=== PATIENT | female | born 1990 | race African-American/Black ===

== ENCOUNTER 2016-04-20 08:42 | Emergency (ER) | payer OTHER ==
--- NOTE | 2016-04-20 09:15 | EDDOCDS ---
Physician Documentation [facility] Name: Jael Kessler Age: 25 yrs Sex: Female : 1990 Arrival Date: 04/20/2016 Time: 08:42 Bed I5 / M5 Private MD: Anshu Morton Disposition: 04/20/16 09:04 Discharged to Home/Self Care. Impression: Acute nasopharyngitis [common cold]. - Condition is Stable. - Discharge Instructions: Cool Mist Vaporizers, Upper Respiratory Infection, Adult, Gpzt-fc-[id number], Viral Infections, Tgxu-Ql-Argk. - Medication Reconciliation, Local Pharmacy Hours form. - Follow up: Mariusz Kenny [facility]; When: Today; Reason: Further diagnostic work-up, Recheck today's complaints, Continuance of care. - Problem is new. - Symptoms are unchanged. Historical: - Allergies: no known allergies; - Home Meds: 1. gabapentin 300 mg oral cap 3 times per day 2. Lexapro 20 mg Oral tab 1 tab once daily 3. losartan 25 mg oral tab 1 tab once daily 4. melatonin 3 mg Oral tab 1 mg daily 5. trazodone 50 mg oral tab 2 times per day - PMHx: Hypertension; - PSHx: none; - Social history: Smoking status: Patient states was never smoker of tobacco. No barriers to communication noted, The patient speaks fluent Botswanan. - Family history: Not pertinent. - : The pt / caregiver states he / she is not on anticoagulants. Home medication list is obtained from the patient. - Exposure Risk Screening:: None identified. 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 8 in. (172.72 cm); Pain 3/10; 08:46 Body Mass Index 30.41 (90.72 kg, 172.72 cm) [facility] MDM: 09:07 Financial registration complete. lg Signatures: Xavier Leon RN RN jmk Peters, Mary, RN RN mcp Ganter, LoriLee, Vin Licona lg, PA PA btw MTDD
--- NOTE | 2016-04-20 09:15 | EDDOCDS ---
Nurse's Notes [facility] Name: Jael Kessler Age: 25 yrs Sex: Female : 1990 Arrival Date: 04/20/2016 Time: 08:42 Bed I5 / M5 Private MD: Anshu Morton Diagnosis: Acute nasopharyngitis [common cold] Presentation: 04/20 08:48 Presenting complaint: Patient states: Sick for last 1 1/2 weeks--cough, chest mcp congestion, fatigue, nausea. Adult Sepsis Screening: The patient does not have new or worsening altered mentation. Patient's respiratory rate is less than 22. Systolic blood pressure is greater than 100. Patient has a qSOFA score of 0- Negative Sepsis Screen. Suicide/Homicide risk assessment- the patient denies having any suicidal and/or homicidal ideations and does not present with any other emotional, behavioral or mental health complaints. 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 Transition of care: patient was not received from another setting of care. 08:48 Acuity: SEJAL Level [address] [facility] 08:48 Method Of Arrival: Walkin/Carried/Asstd [facility] Triage Assessment: 08:50 General: Appears in no apparent distress, Behavior is cooperative. Pain: Location: [facility] chest with cough Pain currently is 3 out of 10 on a pain scale. HIV screening NA for this visit Offered previously. Neurological: No deficits noted. Respiratory: Airway is patent Respiratory effort is even, unlabored, Reports cough that is persistent. Derm: Skin is normal. 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 Historical: - Allergies: no known allergies; - Home Meds: 1. gabapentin 300 mg oral cap 3 times per day 2. Lexapro 20 mg Oral tab 1 tab once daily 3. losartan 25 mg oral tab 1 tab once daily 4. melatonin 3 mg Oral tab 1 mg daily 5. trazodone 50 mg oral tab 2 times per day - PMHx: Hypertension; - PSHx: none; - Social history: Smoking status: Patient states was never smoker of tobacco. No barriers to communication noted, The patient speaks fluent Tunisian. - Family history: Not pertinent. - : The pt / caregiver states he / she is not on anticoagulants. Home medication list is obtained from the patient. - Exposure Risk Screening:: None identified. Screenin:12 Screening information is obtained from the patient. Fall risk: No risks identified. jmk Assistance ADL's: requires no assistance with activities of daily living. Abuse/DV Screen: The patient / caregiver reports he/she is: not in a situation that causes fear, pain or injury. Nutritional screening: No deficits noted. Advance Directives: Currently, there is no health care proxy. There is no active DNR order. There is no living will. There is no Power of Endless Bed Drum Sander. home support is adequate. Assessment: 09:12 General: Appears in no apparent distress, without resp distress. very tolerant of jmk activity. No work of breathing noted. Occasional hacking dry cough noted. moist pink oral mucosa.. Vital Signs: 08:46 BP 148 / 89; Pulse 96; Resp 20; Temp 98.2(O); Pulse Ox 98% on R/A; Weight 90.72 kg; [facility] Height 5 ft. 8 in. (172.72 cm); Pain 3/10; 08:46 Body Mass Index 30.41 (90.72 kg, 172.72 cm) [facility] Vitals: 08:46 Log In Time: April 20, 2016 at 08:41. [facility] ED Course: 08:44 Patient visited by Jessenia Reina. mm15 08:44 Anshu Morton is Private Physician. mm15 08:44 Patient moved to Waiting mm15 08:[address] [facility] 08:51 Patient visited by Moraima Jarvis RN. [facility] 08:51 Patient moved to I5 / M5 [facility] 08:58 [facility] btw 08:58 Jeaneth Fang MD is Attending Physician. btw 08:59 Patient visited by Vin Rankin PA. btw 09:04 Mariusz Kenny [facility] is Referral Physician. btw 09:12 The patient / caregiver is instructed regarding the plan of care and ED course. jmk 09:12 No IV's were initiated during this patient's visit. No procedures done that require jmk assistance. Order Results: There are currently no results for this order. Outcome: 09:04 Discharge ordered by Provider. btw 09:12 Discharge Assessment: Patient awake, alert and oriented x 3. No cognitive and/or jmk functional deficits noted. Patient verbalized understanding of disposition instructions. patient administered narcotics - no. The following High Risk Discharge criteria are identified: None. Discharged to home ambulatory. Condition: good. Discharge instructions given to patient, Instructed on discharge instructions, follow up and referral plans. medication usage, Demonstrated understanding of instructions, medications, Pt was receptive of discharge instructions/ teaching. No special radiology studies were completed. Property :Personal belongings accompany Pt. 09:14 Patient left the ED. 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 moe rosa PENNY
--- NOTE | 2016-04-22 10:16 | EDDOCDS ---
Physician Documentation [facility] Name: Jael Kessler Age: 25 yrs Sex: Female : 1990 Arrival Date: 04/20/2016 Time: 08:42 Bed I5 / M5 Private MD: Anshu Morton Disposition: 04/20/16 09:04 Discharged to Home/Self Care. Impression: Acute nasopharyngitis [common cold]. - Condition is Stable. - Discharge Instructions: Cool Mist Vaporizers, Upper Respiratory Infection, Adult, Twxj-ah-Vzvr, Viral Infections, Jpzo-Fd-Qvit. - Medication Reconciliation, Local Pharmacy Hours form. - Follow up: Mariusz Kenny [facility]; When: Today; Reason: Further diagnostic work-up, Recheck today's complaints, Continuance of care. - Problem is new. - Symptoms are unchanged. Historical: - Allergies: no known allergies; - Home Meds: 1. gabapentin 300 mg oral cap 3 times per day 2. Lexapro 20 mg Oral tab 1 tab once daily 3. losartan 25 mg oral tab 1 tab once daily 4. melatonin 3 mg Oral tab 1 mg daily 5. trazodone 50 mg oral tab 2 times per day - PMHx: Hypertension; - PSHx: none; - Social history: Smoking status: Patient states was never smoker of tobacco. No barriers to communication noted, The patient speaks fluent Slovak. - Family history: Not pertinent. - : The pt / caregiver states he / she is not on anticoagulants. Home medication list is obtained from the patient. - Exposure Risk Screening:: None identified. 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 8 in. (172.72 cm); Pain 3/10; 08:46 Body Mass Index 30.41 (90.72 kg, 172.72 cm) [facility] MDM: 09:07 Financial registration complete. lg 09:23 [facility] Payment Agreement was scanned into [employer] and attached to record. lg 14:06 T-Sheet-- Draft Copy was scanned into [employer] and attached to record. gb Signatures: Xavier Leon,RN Moraima Braxton RN RN mcp Barnhardt, Gloria, Reg Reg gb Andrea Subramanian, Reg Reg lg Vin Rankin PA PA btw The chart was reviewed and I authenticate all verbal orders and agree with the evaluation and treatment provided.Attachments: 09: [facility] Payment Agreement lg 14:06 T-Sheet-- Draft Copy gb Chart Complete MTDD
--- NOTE | 2016-04-22 10:16 | EDDOCDS ---
Physician Documentation [facility] Name: Jael Kessler Age: 25 yrs Sex: Female : 1990 Arrival Date: 04/20/2016 Time: 08:42 Bed I5 / M5 Private MD: Anshu Morton Disposition: 04/20/16 09:04 Discharged to Home/Self Care. Impression: Acute nasopharyngitis [common cold]. - Condition is Stable. - Discharge Instructions: Cool Mist Vaporizers, Upper Respiratory Infection, Adult, Rnwz-wd-Wwmt, Viral Infections, Nbob-Hf-Axom. - Medication Reconciliation, Local Pharmacy Hours form. - Follow up: Mariusz Kenny [facility]; When: Today; Reason: Further diagnostic work-up, Recheck today's complaints, Continuance of care. - Problem is new. - Symptoms are unchanged. Historical: - Allergies: no known allergies; - Home Meds: 1. gabapentin 300 mg oral cap 3 times per day 2. Lexapro 20 mg Oral tab 1 tab once daily 3. losartan 25 mg oral tab 1 tab once daily 4. melatonin 3 mg Oral tab 1 mg daily 5. trazodone 50 mg oral tab 2 times per day - PMHx: Hypertension; - PSHx: none; - Social history: Smoking status: Patient states was never smoker of tobacco. No barriers to communication noted, The patient speaks fluent Yakut. - Family history: Not pertinent. - : The pt / caregiver states he / she is not on anticoagulants. Home medication list is obtained from the patient. - Exposure Risk Screening:: None identified. 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 8 in. (172.72 cm); Pain 3/10; 08:46 Body Mass Index 30.41 (90.72 kg, 172.72 cm) [facility] MDM: 09:07 Financial registration complete. lg 09:23 [facility] Payment Agreement was scanned into [employer] and attached to record. lg 14:06 T-Sheet-- Draft Copy was scanned into [employer] and attached to record. gb Signatures: Xavier Leon,RN Moraima Braxton RN RN mcp Barnhardt, Gloria, Reg Reg gb Andrea Subramanian, Reg Reg lg Vin Rankin PA PA btw The chart was reviewed and I authenticate all verbal orders and agree with the evaluation and treatment provided.Attachments: 09: [facility] Payment Agreement lg 14:06 T-Sheet-- Draft Copy gb Chart Complete MTDD
--- NOTE | 2016-04-22 10:16 | EDDOCDS ---
Nurse's Notes [facility] Name: Jael Kessler Age: 25 yrs Sex: Female : 1990 Arrival Date: 04/20/2016 Time: 08:42 Bed I5 / M5 Private MD: Anshu Morton Diagnosis: Acute nasopharyngitis [common cold] Presentation: 04/20 08:48 Presenting complaint: Patient states: Sick for last 1 1/2 weeks--cough, chest mcp congestion, fatigue, nausea. Adult Sepsis Screening: The patient does not have new or worsening altered mentation. Patient's respiratory rate is less than 22. Systolic blood pressure is greater than 100. Patient has a qSOFA score of 0- Negative Sepsis Screen. Suicide/Homicide risk assessment- the patient denies having any suicidal and/or homicidal ideations and does not present with any other emotional, behavioral or mental health complaints. 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 Transition of care: patient was not received from another setting of care. 08:48 Acuity: SEJAL Level 4 [facility] 08:48 Method Of Arrival: Walkin/Carried/Asstd [facility] Triage Assessment: 08:50 General: Appears in no apparent distress, Behavior is cooperative. Pain: Location: [facility] chest with cough Pain currently is 3 out of 10 on a pain scale. HIV screening NA for this visit Offered previously. Neurological: No deficits noted. Respiratory: Airway is patent Respiratory effort is even, unlabored, Reports cough that is persistent. Derm: Skin is normal. 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 gabapentin 300 mg oral cap 3 times per day 2. Lexapro 20 mg Oral tab 1 tab once daily 3. losartan 25 mg oral tab 1 tab once daily 4. melatonin 3 mg Oral tab 1 mg daily 5. trazodone 50 mg oral tab 2 times per day - PMHx: Hypertension; - PSHx: none; - Social history: Smoking status: Patient states was never smoker of tobacco. No barriers to communication noted, The patient speaks fluent Italian. - Family history: Not pertinent. - : The pt / caregiver states he / she is not on anticoagulants. Home medication list is obtained from the patient. - Exposure Risk Screening:: None identified. Screenin:12 Screening information is obtained from the patient. Fall risk: No risks identified. jmk Assistance ADL's: requires no assistance with activities of daily living. Abuse/DV Screen: The patient / caregiver reports he/she is: not in a situation that causes fear, pain or injury. Nutritional screening: No deficits noted. Advance Directives: Currently, there is no health care proxy. There is no active DNR order. There is no living will. There is no Power of Barrel Lathe Operator. home support is adequate. Assessment: 09:12 General: Appears in no apparent distress, without resp distress. very tolerant of jmk activity. No work of breathing noted. Occasional hacking dry cough noted. moist pink oral mucosa.. Vital Signs: 08:46 BP 148 / 89; Pulse 96; Resp 20; Temp 98.2(O); Pulse Ox 98% on R/A; Weight 90.72 kg; [facility] Height 5 ft. 8 in. (172.72 cm); Pain 3/10; 08:46 Body Mass Index 30.41 (90.72 kg, 172.72 cm) [facility] Vitals: 08:46 Log In Time: April 20, 2016 at 08:41. [facility] ED Course: 08:44 Patient visited by Jessenia Reina. mm15 08:44 Anshu Morton is Private Physician. mm15 08:44 Patient moved to Waiting mm15 08:49 Triage Initiated [facility] 08:51 Patient visited by Moraima Jarvis RN. [facility] 08:51 Patient moved to I5 / M5 [facility] 08:58 Vin [facility]. btw 08:58 Jeaneth Fang MD is Attending Physician. btw 08:59 Patient visited by Vin Rankin PA. btw 09:04 Mariusz Kenny [facility] is Referral Physician. btw 09:12 The patient / caregiver is instructed regarding the plan of care and ED course. jmk 09:12 No IV's were initiated during this patient's visit. No procedures done that require jmk assistance. 09:23 [facility] Payment Agreement was scanned into [employer] and attached to record. lg 14:06 T-Sheet-- Draft Copy was scanned into [employer] and attached to record. gb Order Results: There are currently no results for this order. Outcome: 09:04 Discharge ordered by Provider. btw 09:12 Discharge Assessment: Patient awake, alert and oriented x 3. No cognitive and/or k functional deficits noted. Patient verbalized understanding of disposition instructions. patient administered narcotics - no. The following High Risk Discharge criteria are identified: None. Discharged to home ambulatory. Condition: good. Discharge instructions given to patient, Instructed on discharge instructions, follow up and referral plans. medication usage, Demonstrated understanding of instructions, medications, Pt was receptive of discharge instructions/ teaching. No special radiology studies were completed. Property :Personal belongings accompany Pt. 09:14 Patient left the ED. k Signatures: Xavier Leon,RN RN Moraima Henriquez RN RN [facility] Melanie Tapia, Reg Reg gb Andrea Subramanian, Reg Reg lg Vin Rankin PA PA btw McGrath, Marlynn mm15 Corrections: (The following items were deleted from the chart) 08:49 08:48 Status: Patient is not a payroll services analyst or dependent. [facility] Chart Complete MTDD
== END 2016-04-20 09:14 | disposition home or self-care (01) ==
LOC: M ED 08:42
DX: J00 Acute nasopharyngitis [common cold] (principal); B34.9 Viral infection, unspecified; I10 Essential (primary) hypertension; Z79.899 Other long term (current) drug therapy